=== PATIENT | female | born 1940 | race Caucasian/White ===

== ENCOUNTER 2016-05-18 09:15 | Emergency (ER) | payer MEDICAID ==
[~2016-05-18] VITALS: Wt 76.0 kg
[~2016-05-18 09:15] MED LIST: ALEN70TA30 PO; ATEN-51 PO; BENA40TA41 PO; BENZ-5 PO; CALC-62 PO; GLIPIZIDE PO; HYDR25TA6 PO; IBUP400T22 PO; LEVO500T10 PO; METF500T4 PO; OMEG-135 PO; SENOKOTS PO; UDROBDM PO
[2016-05-18] MEDS ORDERED: KETOROLAC 30 MG INJ IM STA (10:02)
--- NOTE | 2016-05-18 11:22 | RADRPT ---
PROCEDURE: XR Left Wrist. CLINICAL INDICATION: Pain. TECHNIQUE: AP, lateral, skateboard and oblique views of the left wrist were performed. COMPARISON: Left wrist 03/17/2009. FINDINGS: There are degenerative changes of the left first carpal metacarpal joints. These scaphoid bone is intact. The other visible bony elements appear intact are anatomically aligned. IMPRESSION: 1. Degenerative arthropathy involving the left first carpal metacarpal joint. 2. The scaphoid bone and other bony elements are intact with no acute fracture identified. RPTAT:AAJJ Physician Terra Date Time Electronically viewed and signed by Physician Terra on 05/18/2016 11:21 /
--- NOTE | 2016-05-18 11:23 | RADRPT ---
PROCEDURE: XR left thumb. CLINICAL INDICATION: Injury TECHNIQUE: 4 views are available for review. COMPARISON: No prior studies are available for comparison. FINDINGS: There is normal mineralization, architecture and alignment. No fracture or osseous lesion is identi fied. There is mild to moderate osteoarthrosis involving the 1st carpal-metacarpal joint. This is as sociated with joint space narrowing, subchondral sclerosis and osteophytosis. The soft tissues are u nremarkable IMPRESSION: Mild to moderate osteoarthrosis involving the 1st carpal-metacarpal joint. RPTAT: HGDB .Lexx Rodriguez MD, Date Time Electronically viewed and signed by .Lexx Rodriguez MD, on 05/18/2016 11:23 .B/
--- NOTE | 2016-05-18 11:39 | ERD ---
ER Documentation Chief Complaint Date/Time DATE: 05/18/16 TIME: 11:31 Chief Complaint LEFT HAND PAIN AFTER MECHANICAL FALL HPI This is a 76-year-old female who presents the emergency department today complaining of left thumb and wrist pain after washing some dishes the other day and slamming her thumb into the sink.. Denies any previous trauma. Denies any fevers or chills. States that she put aloe vera on it. ROS All systems reviewed and are negative except as per history of present illness. Medications Home Meds Active Scripts Acetaminophen* (Tylophen*) 500 Mg Capsule, 1 CAP PO Q6H Y for PAIN AND OR ELEVATED TEMP, #30 CAP Prov:JESSICA MUÑOZ PA-C 05/18/16 Tramadol HCl (Tramadol HCl) 50 Mg Tablet, 50 MG PO Q4 Y for PAIN, #20 TAB Prov:JESSICA MUÑOZ PA-C 05/18/16 Ibuprofen* (Motrin*) 400 Mg Tab, 400 MG PO Q6, #30 TAB 0 Refills Prov:ATIF HARTLEY PA-C 06/11/15 Benzonatate* (Benzonatate*) 100 Mg Capsule, 100 MG PO TID Y for COUGH, #6 CAP Prov:RAMEZ CASTANEDA MD 01/08/15 Guaifenesin-Dextromethorphan* (Robitussin* DM) 100MG/10MG/5ML Syrup, 5 ML PO Q6H Y for COUGH, #100 ML Prov:RAMEZ CASTANEDA MD 01/08/15 Levofloxacin* (Levofloxacin*) 500 Mg Tablet, 500 MG PO DAILY, #7 TAB Prov:RAMEZ CASTANEDA MD 01/08/15 Reported Medications Docusate Sod/Senna (Senokot-S) 1 Tab Tab, 1 TAB PO DAILY Y 03/07/11 Fish Oil* (Fish Oil*) 1,000 Mg Cap, 1000 MG PO DAILY 03/07/11 Alendronate Sodium* (Fosamax*) 70 Mg Tablet, 70 MG PO QFRIDAY 03/07/11 Atenolol* (Atenolol*) 25 Mg Tablet, 25 MG PO DAILY 03/07/11 Hydrochlorothiazide (Hydrochlorothiazide) 25 Mg Tablet, 25 MG PO DAILY 1/11/12 Benazepril Hcl* (Benazepril Hcl*) 40 Mg Tablet, 40 MG PO DAILY 03/07/11 Calcium Carbonate/Vitamin D3 (Calcium 500 + D Tablet) 1 Tab Tablet, 1 TAB PO TID 03/07/11 Glipizide , 1 TAB PO BID 05/17/10 Metformin* (Glucophage*) 500 Mg Tab, 500 MG PO BID 03/17/09 Allergies Allergies: Coded Allergies: No Known Allergies (Verified Allergy, Mild, 06/11/15) PMhx/Soc History of Surgery: No Anesthesia Reaction: No Hx Neurological Disorder: No Hx Respiratory Disorders: Yes (pneumonia and nodule on lung) Hx Cardiac Disorders: Yes (HTN) Hx Psychiatric Problems: No Hx Miscellaneous Medical Probl: Yes (ARTHRITIS) Hx Alcohol Use: No Hx Substance Use: No Hx Tobacco Use: No Smoking Status: Never smoker Physical Exam Vitals Vital Signs Date Time Temp Pulse Resp B/P Pulse Ox O2 Delivery O2 Flow Rate FiO2 05/18/16 09:18 98.0 101 18 151/66 99 Physical Exam Const: NAD Head: Atraumatic Eyes: Normal Conjunctiva ENT: Normal External Ears, Nose and Mouth. Neck: Full range of motion..~ No meningismus. Resp: Clear to auscultation bilaterally Cardio: Regular rate and rhythm, no murmurs Skin: No petechiae or rashes MSK: thumb and wrist with no obvious deformity. Full active range of motion at wrist. Mild tenderness to palpation over scaphoid. Thenar thenar swelling. Tenderness to palpation. Unable to assess range of motion secondary to pain. Neur: Awake and alert Psych: Normal Mood and Affect Results 24 hrs Current Medications Medications (Trade) Dose Ordered Sig/Alex Route PRN Reason Start Time Stop Time Status Last Admin Dose Admin Ketorolac Tromethamine (Toradol) 30 mg ONCE STAT IM 05/18/16 10:02 05/18/16 10:04 DC 05/18/16 10:09 DIAGNOSTIC IMAGING REPORT Patient: SIOBHAN BARBOSA : 1940 Age: 76 Sex: F MR #: [id number] DOS: 05/18/16 0000 Ordering MD: JESSICA MUÑOZ PA-C Location: [facility] Room/Bed: PROCEDURE: XR left thumb. CLINICAL INDICATION: Injury TECHNIQUE: 4 views are available for review. COMPARISON: No prior studies are available for comparison. FINDINGS: There is normal mineralization, architecture and alignment. No fracture or osseous lesion is identified. There is mild to moderate osteoarthrosis involving the 1st carpal-metacarpal joint. This is associated with joint space narrowing, subchondral sclerosis and osteophytosis. The soft tissues are unremarkable IMPRESSION: Mild to moderate osteoarthrosis involving the 1st carpal-metacarpal joint. RPTAT: HGDB .Lexx Rodriguez MD, Date Time Electronically viewed and signed by .Lexx Rodriguez MD, MD on 05/18/2016 11:23 .B/ CC: JESSICA MUÑOZ PA-C DIAGNOSTIC IMAGING REPORT Patient: SIOBHAN BARBOSA : 1940 Age: 76 Sex: F MR #: [id number] DOS: 05/18/16 0000 Ordering MD: JESSICA MUÑOZ PA-C Location: [facility] Room/Bed: PROCEDURE: XR Left Wrist. CLINICAL INDICATION: Pain. TECHNIQUE: AP, lateral, skateboard and oblique views of the left wrist were performed. COMPARISON: Left wrist 03/17/2009. FINDINGS: There are degenerative changes of the left first carpal metacarpal joints. These scaphoid bone is intact. The other visible bony elements appear intact are anatomically aligned. IMPRESSION: 1. Degenerative arthropathy involving the left first carpal metacarpal joint. 2. The scaphoid bone and other bony elements are intact with no acute fracture identified. RPTAT:AAJJ Physician Terra Date Time Electronically viewed and signed by Physician Terra on 05/18/2016 11:21 JM/ CC: JESSICA MUÑOZ PA-C Procedures/MDM This a 76-year-old female who presents to the emergency department today complaining of left thumb and wrist pain after sustaining an injury in which she slammed her thumb into the sink while cleaning dishes. Given that there was trauma and there was a significant amount of swelling over the thenar eminence I did obtain images. Per the radiology report images of the left thumb show mild to moderate osteoarthrosis involving the first carpometacarpal joint. There is joint space narrowing, subchondral sclerosis and osteophytosis. Soft tissues are unremarkable. Scaphoid bone on her wrist is intact with no acute fracture identified. Patient is afebrile and otherwise well-appearing. Low suspicion for septic joint or gout. Patient symptoms at this time is consistent with contusion versus strain versus sprain versus osteoarthritis Patient's daughter was requesting an injection here in the emergency department. Patient was given Toradol. I will give her a prescription for tramadol and Tylenol for home. She was instructed to apply ice she was placed in a splint for comfort. She is distally neurovascularly intact pre-and post splint application. At this time the patient is stable for discharge and outpatient management. Patient should follow up with their PCP in the next 1-2 days for possible referral to orthopedic. They may return to the emergency department sooner for any persistent or worsening of symptoms. Patient and daughter understood and agreed with the plan. Departure Diagnosis: Primary Impression: Thumb injury Encounter type: initial encounter Laterality: left Qualified Code: S69.92XA - Thumb injury, left, initial encounter Condition: Fair JESSICA MUÑOZ PA-C May 18, 2016 11:39
[2016-05-18] MEDS ORDERED: ACET500C5 PO (11:45)
[2016-05-18] MEDS ORDERED: TRAM50TA2 PO (11:45)
[2016-05-18 11:57] VITALS: BP 142/69; PULSE 80; RESP 18
== END 2016-05-18 12:27 | disposition home or self-care (01) ==
LOC: FTE 09:15
DX: S69.92XA Unspecified injury of left wrist, hand and finger(s), initial encounter (principal); I10 Essential (primary) hypertension; W18.39XA Other fall on same level, initial encounter; Y92.9 Unspecified place or not applicable; Z79.84 Long term (current) use of oral hypoglycemic drugs
CPT/HCPCS: 29125; 73110; 73140; 96372; J1885; Z7502

== ENCOUNTER 2016-05-24 19:14 | Emergency (ER) | payer MEDICAID ==
[~2016-05-24] VITALS: Ht 157.5 cm; Wt 68.5 kg
[~2016-05-24 19:14] MED LIST changes: +ACET500C5 PO; +TRAM50TA2 PO
[2016-05-24 19:45] VITALS: Ht 157.5 cm; Wt 68.5 kg
--- NOTE | 2016-05-24 22:08 | ERA ---
ER Documentation Chief Complaint Date/Time DATE: 05/24/16 TIME: 22:07 Chief Complaint dizziness HPI The patient is a 76-year-old female, presenting to the ER because of dizziness, she felt as if the room is spinning. She feels better if she closes her eye, worse if she move her head. She vomited mostly mucus. She has similar symptoms previously, denies syncope, near syncope, neck pain, chest pain, dyspnea, abdominal pain, dysuria, diarrhea. She does not smoke, drink Past medical history: Hypertension, osteoporosis, diabetes mellitus, dyslipidemia Past surgical history: None ROS All systems reviewed and are negative except as per history of present illness. Medications Home Meds Active Scripts Ondansetron (Ondansetron Odt) 4 Mg Tab.rapdis, 4 MG PO Q6H Y for NAUSEA AND/OR VOMITING, #10 TAB Prov:LEONARDO HUGHES MD 05/25/16 Meclizine Hcl* (Antivert*) 12.5 Mg Tab, 25 MG PO Q6H Y for DIZZINESS, #20 TAB Prov:LEONARDO HUGHES MD 05/25/16 Reported Medications Famotidine* (Famotidine*) Unknown Strength Tablet, 1 TAB PO DAILY, #30 TAB 05/24/16 Atorvastatin Calcium* (Atorvastatin Calcium*) Unknown Strength Tablet, 1 TAB PO QHS, #30 TAB 05/24/16 Glipizide* (Glipizide*) Unknown Strength Tablet, 1 TAB PO AC BREAKFAST DINNER, TAB 05/24/16 Fish Oil* (Fish Oil*) 1,000 Mg Cap, 1000 MG PO DAILY 03/07/11 Hydrochlorothiazide (Hydrochlorothiazide) 25 Mg Tablet, 25 MG PO DAILY 03/07/11 Benazepril Hcl* (Benazepril Hcl*) 40 Mg Tablet, 40 MG PO DAILY 03/07/11 Calcium Carbonate/Vitamin D3 (Calcium 500 + D Tablet) 1 Tab Tablet, 1 TAB PO TID 03/07/11 Discontinued Reported Medications Docusate Sod/Senna (Senokot-S) 1 Tab Tab, 1 TAB PO DAILY Y 03/07/11 Alendronate Sodium* (Fosamax*) 70 Mg Tablet, 70 MG PO QFRIDAY 03/07/11 Atenolol* (Atenolol*) 25 Mg Tablet, 25 MG PO DAILY 03/07/11 Glipizide , 1 TAB PO BID 05/17/10 Metformin* (Glucophage*) 500 Mg Tab, 500 MG PO BID 03/17/09 Discontinued Scripts Acetaminophen* (Tylophen*) 500 Mg Capsule, 1 CAP PO Q6H Y for PAIN AND OR ELEVATED TEMP, #30 CAP Prov:JESSICA MUÑOZ PA-C 05/18/16 Tramadol HCl (Tramadol HCl) 50 Mg Tablet, 50 MG PO Q4 Y for PAIN, #20 TAB Prov:JESSICA MUÑOZ PA-C 05/18/16 Ibuprofen* (Motrin*) 400 Mg Tab, 400 MG PO Q6, #30 TAB 0 Refills Prov:ATIF HARTLEY PA-C 06/11/15 Benzonatate* (Benzonatate*) 100 Mg Capsule, 100 MG PO TID Y for COUGH, #6 CAP Prov:RAMEZ CASTANEDA MD 01/08/15 Guaifenesin-Dextromethorphan* (Robitussin* DM) 100MG/10MG/5ML Syrup, 5 ML PO Q6H Y for COUGH, #100 ML Prov:RAMEZ CASTANEDA MD 01/08/15 Levofloxacin* (Levofloxacin*) 500 Mg Tablet, 500 MG PO DAILY, #7 TAB Prov:RAMEZ CASTANEDA MD 01/08/15 Allergies Allergies: Coded Allergies: No Known Allergies (Verified Allergy, Mild, 05/24/16) PMhx/Soc History of Surgery: No Anesthesia Reaction: No Hx Neurological Disorder: No Hx Respiratory Disorders: Yes (pneumonia and nodule on lung) Hx Cardiac Disorders: Yes (HTN) Hx Psychiatric Problems: No Hx Miscellaneous Medical Probl: Yes (ARTHRITIS) Hx Alcohol Use: No Hx Substance Use: No Hx Tobacco Use: No Physical Exam Vitals Vital Signs Date Time Temp Pulse Resp B/P Pulse Ox O2 Delivery O2 Flow Rate FiO2 05/25/16 00:00 67 17 159/60 99 Room Air 05/24/16 19:45 98.4 84 18 216/103 98 Physical Exam Const: No acute distress. Head: Atraumatic. Eyes: Normal Conjunctiva. ENT: Normal External Ears, Nose and Mouth. No nystagmus. Bilateral tympanic membranes are within normal limit Neck: Full range of motion. No meningismus. Resp: Clear to auscultation bilaterally. Cardio: Regular rate and rhythm, no murmurs. Abd: Soft, non distended, normal bowel sounds, non tender. Skin: No petechiae or rashes. Back: No midline or flank tenderness. Ext: No cyanosis, or edema. Neur: Awake and alert. No focal deficit Psych: Normal Mood and Affect. Result Diagram: 05/24/16 2240 05/24/16 2310 Results 24 hrs Laboratory Tests Test 05/24/16 20:08 05/24/16 22:39 05/24/16 22:40 05/24/16 23:10 Bedside Glucose 281mg/dL 291mg/dL White Blood Count 11.710^3/ul Red Blood Count 4.1610^6/ul Hemoglobin 12.7g/dl Hematocrit 36.1% Mean Corpuscular Volume 86.8fl Mean Corpuscular Hemoglobin 30.5pg Mean Corpuscular Hemoglobin Concent 35.2g/dl Red Cell Distribution Width 14.1% Platelet Count 59937^3/UL Mean Platelet Volume 9.7fl Neutrophils % 79.2% Lymphocytes % 15.6% Monocytes % 4.0% Eosinophils % 0.0% Basophils % 0.8% Nucleated Red Blood Cells % 0.0/100WBC Neutrophils # 9.310^3/ul Lymphocytes # 1.810^3/ul Monocytes # 0.510^3/ul Eosinophils # 0.010^3/ul Basophils # 0.110^3/ul Nucleated Red Blood Cells # 0.010^3/ul Prothrombin Time 12.7Sec Prothrombin Time Ratio 1.0 INR International Normalized Ratio 0.95 Activated Partial Thromboplast Time 27.5Sec Sodium Level 129mmol/L Potassium Level 4.5mmol/L Chloride Level 91mmol/L Carbon Dioxide Level 26mmol/L Anion Gap 17 Blood Urea Nitrogen 16mg/dl Creatinine 0.67mg/dl Glucose Level 292mg/dl Calcium Level 9.2mg/dl Current Medications Medications (Trade) Dose Ordered Sig/Alex Route PRN Reason Start Time Stop Time Status Last Admin Dose Admin Meclizine HCl (Antivert) 25 mg ONCE ONCE PO 05/24/16 22:30 05/24/16 22:31 DC 05/24/16 22:43 Ondansetron HCl 4 mg 4 mg ONCE STAT IV 05/24/16 22:21 05/24/16 22:22 DC 05/24/16 22:43 Sodium Chloride (NS) 500 ml @ 500 mls/hr Q1H ONCE IV 05/25/16 01:00 05/25/16 01:59 Procedures/MDM [place] [address] Radiology Main Line: [phone] DIAGNOSTIC IMAGING REPORT Patient: SIOBHAN BARBOSA : 1940 Age: 76 Sex: F MR #: [id number] DOS: 05/24/16 2220 Ordering MD: LEONARDO HUGHES MD Location: E/R Room/Bed: PROCEDURE: CT brain without contrast CLINICAL INDICATION: Headaches TECHNIQUE: A CT of the brain was performed utilizing axial sections from the skull base through the vertex without contrast. Sagittal and coronal images were also reformatted. The exam CTDIvol = 45.01 mGy and DLP = 720.23 mGy-cm. COMPARISON: None available FINDINGS: No acute intracranial hemorrhage is identified. There is no mass effect or midline shift. No extra-axial fluid collection is seen. Prominence of the ventricular system and sulci is consistent with generalized tissue loss that is appropriate for the patient's provided age of 76 years, low attenuation within the periventricular white matter is nonspecific but likely sequela of mild chronic small vessel ischemia. The density of the brain is within normal limits. Stoner-white differentiation is preserved. The osseous structures are unremarkable. Mucous retention cyst or polyp in the left maxillary antrum is present. The remaining paranasal sinuses and mastoid air cells are clear RPTAT:HJJR IMPRESSION: 1. Generalized age-appropriate cerebral tissue loss with mild periventricular white matter disease likely chronic small vessel ischemia but no evidence of acute intracranial abnormality or mass effect. 2. Mucous retention cyst or polyp in the left maxillary antrum. Physician Chavez Date Time Electronically viewed and signed by Physician Chavez on 05/25/2016 00:05 JR/ CC: LEONARDO HUGHES MD EKG: Read by emergency physician Rate/Rhythm: Normal Sinus Rhythm 75 beats/min QRS, ST, T-waves: No ST elevation, no T inversion, left anterior fascicular block Impression: Abnormal EKG MEDICAL MAKING DECISION: The patient is a 76-year-old female, presenting to the ER because of acute dizziness of unclear etiology, most likely benign positional vertigo, acute diabetic hyperglycemia, acute accelerated hypertension. She was treated with Antivert 25 mg p.o., Zofran 4 mg IV for dizziness, 500 mL normal saline for acute diabetic hyperglycemia with good response. Her blood pressure improved without intervention. The differential diagnoses considered include but are not limited to central causes such as cerebellar infarct, cerebellar hemorrhage, cerebellar tumor, acoustic neuroma, peripheral causes such as benign positional vertigo, labyrinthitis, medication, Meniere's disease. Departure Diagnosis: Primary Impression: Dizziness of unknown cause Additional Impressions: Diabetes mellitus with hyperglycemia Accelerated hypertension Condition: Good Comments She was discharged with Antivert, Zofran ODT I discussed the findings with the patient. I advised the patient to follow-up with the primary physician in about 1-2 days, sooner if needed and return if any concern. LEONARDO HUGHES MD May 24, 2016 22:08
[2016-05-24] MEDS ORDERED: ONDANSETRON 4 MG INJ IV STA (22:21)
[2016-05-24] MEDS ORDERED: MECLIZINE 12.5 MG TAB PO ONE (22:30)
[2016-05-24 22:49] LABS: ADD SCAN DIFF NO
[2016-05-24 22:51] LABS: BASOPHIL # 0.1 10^3/ul (0.0-0.1); BASOPHILS % 0.8 % (0.0-2.0); HEMATOCRIT 36.1 % (37.0-47.0); HEMOGLOBIN 12.7 g/dl (12.0-16.0); LYMPHOCYTES # 1.8 10^3/ul (0.8-2.9); LYMPHOCYTES % 15.6 % (15.0-51.0); MEAN CORPUSCULAR HEMOGLOBIN 30.5 pg (29.0-33.0); MEAN CORPUSCULAR HGB CONC 35.2 g/dl (32.0-37.0); MEAN CORPUSCULAR VOLUME 86.8 fl (82.0-101.0); MEAN PLATELET VOLUME 9.7 fl (7.4-10.4); MONOCYTE # 0.5 10^3/ul (0.3-0.9); NEUTROPHIL # 9.3 10^3/ul (1.6-7.5); NEUTROPHILS % 79.2 % (39.0-77.0); PLATELET COUNT 390 10^3/UL (140-415); RED BLOOD COUNT 4.16 10^6/ul (4.20-5.40); RED CELL DISTRIBUTION WIDTH 14.1 % (11.5-14.5); WHITE BLOOD COUNT 11.7 10^3/ul (4.8-10.8)
[2016-05-24] MEDS ORDERED: GLIP-95 PO (22:56)
[2016-05-24] MEDS ORDERED: ATOR20TA38 PO (22:56)
[2016-05-24] MEDS ORDERED: FAMO20TA18 PO (22:57)
[2016-05-24 23:01] LABS: INR 0.95; PROTIME 12.7 Sec (12.2-14.2)
[2016-05-24 23:02] LABS: PARTIAL THROMBOPLASTIN TIME 27.5 Sec (25.0-35.0)
[2016-05-24 23:43] LABS: POTASSIUM 4.5 mmol/L (3.5-5.1)
[2016-05-24 23:46] LABS: CALCIUM 9.2 mg/dl (8.4-10.2); CREATININE 0.67 mg/dl (0.44-1.00)
--- NOTE | 2016-05-25 00:05 | RADRPT ---
PROCEDURE: CT brain without contrast CLINICAL INDICATION: Headaches TECHNIQUE: A CT of the brain was performed utilizing axial sections from the skull base through th e vertex without contrast. Sagittal and coronal images were also reformatted. The exam CTDIvol = 45. 01 mGy and DLP = 720.23 mGy-cm. COMPARISON: None available FINDINGS: No acute intracranial hemorrhage is identified. There is no mass effect or midline shift. No extra -axial fluid collection is seen. Prominence of the ventricular system and sulci is consistent with generalized tissue loss that is appropriate for the patient's provided age of 76 years, low attenuat ion within the periventricular white matter is nonspecific but likely sequela of mild chronic small vessel ischemia. The density of the brain is within normal limits. Stoner-white differentiation is p reserved. The osseous structures are unremarkable. Mucous retention cyst or polyp in the left maxillary antru m is present. The remaining paranasal sinuses and mastoid air cells are clear RPTAT:HJJR IMPRESSION: 1. Generalized age-appropriate cerebral tissue loss with mild periventricular white matter disease likely chronic small vessel ischemia but no evidence of acute intracranial abnormality or mass effec t. 2. Mucous retention cyst or polyp in the left maxillary antrum. Physician Chavez Date Time Electronically viewed and signed by Physician Chavez on 05/25/2016 00:05 JR/
[2016-05-25] MEDS ORDERED: ONDA4TAB14 PO (00:50)
[2016-05-25] MEDS ORDERED: MECL12.574 PO (00:50)
[2016-05-25] MEDS ORDERED: SOD CHLORIDE 0.9% 500 ML IV ONE (01:00)
[2016-05-25 01:55] VITALS: BP 155/60; PULSE 70; RESP 16; TEMP 98.4
== END 2016-05-25 02:05 | disposition home or self-care (01) ==
LOC: E/R 19:14
DX: R42 Dizziness and giddiness (principal); E11.65 Type 2 diabetes mellitus with hyperglycemia; I10 Essential (primary) hypertension; R11.10 Vomiting, unspecified; Z79.84 Long term (current) use of oral hypoglycemic drugs
CPT/HCPCS: 70450; 80048; 82962; 85025; 85610; 85730; 93005; J2405; J7040; Z7610; 36415; 96361; 96374

== ENCOUNTER 2018-03-19 11:42 | Emergency (ER) | payer MEDICAID ==
[~2018-03-19] VITALS: Wt 66.4 kg
[~2018-03-19 11:42] MED LIST changes: -ACET500C5 PO; -ALEN70TA30 PO; -ATEN-51 PO; +ATOR20TA38 PO; -BENA40TA41 PO; +BENA40TA56 PO; -BENZ-5 PO; +FAMO20TA18 PO; +GLIP10TA14 PO; -GLIPIZIDE PO; -IBUP400T22 PO; -LEVO500T10 PO; +MECL12.574 PO; -METF500T4 PO; +ONDA4TAB14 PO; -SENOKOTS PO; -TRAM50TA2 PO; -UDROBDM PO
[2018-03-19 11:45] VITALS: BP 150/72; PULSE 84; RESP 18
--- NOTE | 2018-03-19 14:09 | ERD ---
ER Documentation Chief Complaint Chief Complaint ADELA FEET SWELLING X 2 DAYS HPI 78-year-old female with history of diabetes, presents the emergency department, complaining of right ankle pain and edema after sustaining a mechanical fall yesterday. The patient tripped at home causing a forced inversion of the right ankle. The patient is also complaining of strong urine smell but denies dysuria, no fever, no abdominal pain. ROS All systems reviewed and are negative except as per history of present illness. Medications Home Meds Active Scripts Ibuprofen* (Motrin*) 400 Mg Tab, 400 MG PO Q6H PRN for PAIN AND OR ELEVATED TEMP, #16 TAB Prov:CHRIS LOVE MD 03/19/18 Acetaminophen* (Tylenol*) 325 Mg Tablet, 2 TAB PO Q8 PRN for PAIN AND OR ELEVATED TEMP, #20 TAB Prov:CHRIS LOVE MD 03/19/18 Ondansetron (Ondansetron Odt) 4 Mg Tab.rapdis, 4 MG PO Q6H PRN for NAUSEA AND/OR VOMITING, #10 TAB Prov:LEONARDO HUGHES MD 05/25/16 Meclizine Hcl* (Antivert*) 12.5 Mg Tab, 25 MG PO Q6H PRN for DIZZINESS, #20 TAB Prov:LEONARDO HUGHES MD 05/25/16 Reported Medications Famotidine* (Famotidine*) Unknown Strength Tablet, 1 TAB PO DAILY, #30 TAB 05/24/16 Atorvastatin Calcium* (Atorvastatin Calcium*) Unknown Strength Tablet, 1 TAB PO QHS, #30 TAB 05/24/16 Glipizide* (Glipizide*) Unknown Strength Tablet, 1 TAB PO AC BREAKFAST DINNER, TAB 05/24/16 Fish Oil* (Fish Oil*) 1,000 Mg Cap, 1000 MG PO DAILY 03/07/11 Hydrochlorothiazide (Hydrochlorothiazide) 25 Mg Tablet, 25 MG PO DAILY 03/07/11 Benazepril Hcl* (Benazepril Hcl*) 40 Mg Tablet, 40 MG PO DAILY 03/07/11 Calcium Carbonate/Vitamin D3 (Calcium 500 + D Tablet) 1 Tab Tablet, 1 TAB PO TID 03/07/11 Allergies Allergies: Coded Allergies: No Known Allergies (Verified Allergy, Mild, 03/19/18) PMhx/Soc Medical and Surgical Hx: pt denies Surgical Hx History of Surgery: No Anesthesia Reaction: No Hx Neurological Disorder: No Hx Respiratory Disorders: Yes (pneumonia and nodule on lung) Hx Cardiac Disorders: Yes (HTN) Hx Psychiatric Problems: No Hx Miscellaneous Medical Probl: Yes (ARTHRITIS) Hx Alcohol Use: No Hx Substance Use: No Hx Tobacco Use: No Smoking Status: Never smoker Physical Exam Vitals Vital Signs Date Temp Pulse Resp B/P (MAP) Pulse Ox O2 O2 Flow FiO2 Time Delivery Rate 03/19/18 98.6 84 18 150/72 99 11:45 (98) Physical Exam Const: No acute distress Head: Atraumatic Eyes: Normal Conjunctiva ENT: Normal External Ears, Nose and Mouth. Neck: Full range of motion. No meningismus. Resp: Clear to auscultation bilaterally Cardio: Regular rate and rhythm, no murmurs Abd: Soft, non tender, non distended. Normal bowel sounds Skin: No petechiae or rashes Back: No midline or flank tenderness Ext: Right ankle: Significant lateral malleolar edema, tenderness to palpation, no gross deformity, decreased range of motion due to pain. Distal neurovascular exam intact Neur: Awake and alert Psych: Normal Mood and Affect Results 24 hrs Laboratory Tests Test 03/19/18 14:30 Bedside Urine pH (LAB) 5.5 Bedside Urine Protein (LAB) 1+ Bedside Urine Glucose (UA) Negative Bedside Urine Ketones (LAB) Negative Bedside Urine Blood Trace-intact Bedside Urine Nitrite (LAB) Negative Bedside Urine Leukocyte Esterase (L Trace Radiology Main Line: [phone] DIAGNOSTIC IMAGING REPORT Patient: SIOBHAN BARBOSA : 1940 Age: 78 Sex: F [id number] DOS: 03/19/18 1413 Ordering MD: CHRIS LOVE MD Location: [facility] Room/Bed: PROCEDURE: XR Right Ankle. CLINICAL INDICATION: Trauma due to a fall. Right ankle pain. TECHNIQUE: 3 views. Frontal, lateral, and oblique. COMPARISON: None. FINDINGS: There is no fracture or dislocation. There is extensive lateral soft tissue swelling. Articular surfaces are intact. There are calcaneal spurs. There is no lytic or blastic lesion. There is no radiopaque foreign body. IMPRESSION: 1. Lateral soft tissue swelling. 2. Calcaneal spurs. 3. Otherwise unremarkable images of the right ankle. RPTAT: QQ .Andrew Nugent MD, MD Date Time Electronically viewed and signed by .Andrew Nugent MD, on 03/19/2018 15:06 .R/ CC: CHRIS LOVE MD [id number] Procedures/MDM Acute right ankle pain: no red flags. Differential diagnosis include but not limited to: Ankle sprain/strain, ligament injury, arthritis; low suspicion for fracture, dislocation, septic arthritis. Neurovascular exam grossly intact. no clinical findings suggestive of acute infectious process, no deformity, no rashes. Pertinent Data: X-rays: No fracture or dislocation Physical examination and clinical presentation consistent most likely with ankle sprain. During the ED course the patient received treatment with short leg posterior splint and crutches presenting overall improvement of the symptoms. Results and clinical impression discussed with patient who agrees with management. The patient is stable to be treated outpatient and will be discharged home with recommendations for ice, rest and partial immobilization. NSAIDs 3 times daily for 5 days and close monitoring. The patient was instructed to follow up with the primary care provider in the next 48h. If symptoms persist, worsen or new symptoms develop, then patient should return to the ED immediately. Instructions explained and given to patient with acknowledgment and demonstrated understanding. Disclaimer: Inadvertent spelling and grammatical errors are likely due to EHR/dictation software use and do not reflect on the overall quality of patient care. Also, please note that the electronic time recorded on this note does not necessarily reflect the actual time of the patient encounter. Departure Diagnosis: Primary Impression: Right ankle sprain Condition: Stable Additional Instructions: Muchas radha por [facility] para rios servicio. Esperamos que en rios visita a la fiorella de emergencia rios problema medico haya sido solucionado y que se sienta mucho mejor. Para estar seguros que rios mejoria sigue en proceso, le pedimos el favor de hacer hodan khari de seguimiento medico con rios doctor primario en los proximos 2-4 toth. Lleve con usted estos documentos y las medicinas recetadas. Si taran sintomas empeoran, NO SE ESPERE, por favor regrese a fiorella de emergencia INMEDIATAMENTE. En reggie que usted no tenga un mdico de atencin primaria: Llame al mdico o clnica comunitaria de referencia que aparece abajo leonardo las horas de consultorio para hacer hodan khari para que le vean. CLINICAS: [place] [id number] [phone] [facility] [phone] [facility] [phone] [place] [phone] [place] [id number] [phone] [facility]. [phone] CHRIS HERRERA MD Mar 19, 2018 14:09
[2018-03-19] MEDS ORDERED: ACET325T33 PO (14:52)
[2018-03-19] MEDS ORDERED: IBUP-1561 PO (14:52)
== END 2018-03-19 15:16 | disposition home or self-care (01) ==
LOC: FTE 11:42
DX: S93.401A Sprain of unspecified ligament of right ankle, initial encounter (principal); I10 Essential (primary) hypertension; E11.9 Type 2 diabetes mellitus without complications; W01.0XXA Fall on same level from slipping, tripping and stumbling without subsequent striking against object, initial encounter; Y92.009 Unspecified place in unspecified non-institutional (private) residence as the place of occurrence of the external cause; Z79.84 Long term (current) use of oral hypoglycemic drugs
CPT/HCPCS: 73610; 81003; Z7502

== ENCOUNTER 2018-07-21 08:33 | Emergency (ER) | payer MEDICAID ==
[~2018-07-21] VITALS: Ht 162.6 cm; Wt 66.4 kg
[~2018-07-21 08:33] MED LIST changes: +ACET325T33 PO; +IBUP-1561 PO
[2018-07-21 08:51] VITALS: BP 151/66; PULSE 69; RESP 18; Ht 162.6 cm; Wt 66.4 kg
[2018-07-21] MEDS ORDERED: CEPH-443 PO (10:31)
--- NOTE | 2018-07-21 12:06 | ERD ---
ER Documentation Chief Complaint Chief Complaint engrown nail left big toe x3 days HPI 78-year-old female presenting with pain to left great toenail x3 days. Patient stubbed her toe 3 days ago and sustained pain to the lateral aspect of the left great toenail. There is been some mild erythema. Patient has not taken medications. History of diabetes. NKDA. Social history denies. Up-to-date on vaccinations. Surgical history denies ROS All systems reviewed and are negative except as per history of present illness. Medications Home Meds Active Scripts Cephalexin* (Keflex*) 500 Mg Capsule, 500 MG PO QID for 7 Days, CAP Prov:SERGIO JULIEN PA-C 07/21/18 Ibuprofen* (Motrin*) 400 Mg Tab, 400 MG PO Q6H PRN for PAIN AND OR ELEVATED TEMP, #16 TAB Prov:CHRIS LOVE MD 03/19/18 Acetaminophen* (Tylenol*) 325 Mg Tablet, 2 TAB PO Q8 PRN for PAIN AND OR ELEVATED TEMP, #20 TAB Prov:CHRIS LOVE MD 03/19/18 Ondansetron (Ondansetron Odt) 4 Mg Tab.rapdis, 4 MG PO Q6H PRN for NAUSEA AND/OR VOMITING, #10 TAB Prov:LEONARDO HUGHES MD 05/25/16 Meclizine Hcl* (Antivert*) 12.5 Mg Tab, 25 MG PO Q6H PRN for DIZZINESS, #20 TAB Prov:LEONARDO HUGHES MD 05/25/16 Reported Medications Famotidine* (Famotidine*) Unknown Strength Tablet, 1 TAB PO DAILY, #30 TAB 05/24/16 Atorvastatin Calcium* (Atorvastatin Calcium*) Unknown Strength Tablet, 1 TAB PO QHS, #30 TAB 05/24/16 Glipizide* (Glipizide*) Unknown Strength Tablet, 1 TAB PO AC BREAKFAST DINNER, TAB 05/24/16 Fish Oil* (Fish Oil*) 1,000 Mg Cap, 1000 MG PO DAILY 03/07/11 Hydrochlorothiazide (Hydrochlorothiazide) 25 Mg Tablet, 25 MG PO DAILY 03/07/11 Benazepril Hcl* (Benazepril Hcl*) 40 Mg Tablet, 40 MG PO DAILY 1/11/12 Calcium Carbonate/Vitamin D3 (Calcium 500 + D Tablet) 1 Tab Tablet, 1 TAB PO TID 03/07/11 Allergies Allergies: Coded Allergies: No Known Allergies (Verified Allergy, Mild, 03/19/18) PMhx/Soc History of Surgery: No Anesthesia Reaction: No Hx Neurological Disorder: No Hx Respiratory Disorders: Yes (pneumonia and nodule on lung) Hx Cardiac Disorders: Yes (HTN, DMii) Hx Psychiatric Problems: No Hx Miscellaneous Medical Probl: Yes (ARTHRITIS) Hx Alcohol Use: No Hx Substance Use: No Hx Tobacco Use: No FmHx Family History: No diabetes, No coronary disease, No other Physical Exam Vitals Vital Signs Date Temp Pulse Resp B/P (MAP) Pulse Ox O2 O2 Flow FiO2 Time Delivery Rate 07/21/18 97.7 69 18 151/66 97 08:51 (94) Physical Exam GENERAL: The patient is well-appearing, well-nourished, in no acute distress CHEST: Clear to auscultation bilaterally. There are no rales, wheezes or rhonchi. HEART: Regular rate and rhythm. No murmurs, clicks, rubs or gallops. EXTREMITIES: Equal pulses bilaterally. There is no peripheral clubbing, cyanosis or edema. No focal swelling or erythema. Full range of motion. Grossly neurovascularly intact. NEUROLOGIC: Alert and oriented. Cranial nerves II through XII intact. Motor strength in all 4 extremities with 5 out of 5 strength. Sensation grossly intact. Normal speech and gait. SKIN: Questional erythema noted to the distal tip of the toe with mild pain on palpation. Nail does not appear to be causing this irritation. Procedures/MDM DIAGNOSTIC IMAGING REPORT Patient: SIOBHAN BARBOSA : 1940 Age: 78 Sex: F MR #: [id number] DOS: 07/21/18 0957 Ordering MD: ALIE JULIEN PA-C Location: FTE Room/Bed: PROCEDURE: XR Left First Toe. CLINICAL INDICATION: Trauma. Left first toe pain. TECHNIQUE: Three views of the left first toe are available for review COMPARISON: No prior studies are available for comparison. FINDINGS: There is no fracture or dislocation. The soft tissues are normal. Articular surfaces are intact. There is no lytic or blastic lesion. There is no radiopaque foreign body. IMPRESSION: 1. Unremarkable images of the left first toe. MDM:-year-old female presenting with contusion of the toe. Patient's exam is non-concerning for ingrown toenail and I did not feel it was indicated to remove the lateral portion of the toe. I have low suspicion for bony injury secondary to injury. I have low suspicion for deep infection however patient may have a superficial cellulitic change and will be treated with antibiotic pills. Patient was treated aggressively given she is diabetic and recommended to have close follow-up in the next 2 to 3 days. All questions answered at discharge Departure Diagnosis: Primary Impression: Skin infection Condition: Stable Patient Instructions: Contusion, Foot Referrals: [facility] YOU HAVE RECEIVED A MEDICAL SCREENING EXAM AND THE RESULTS INDICATE THAT YOU DO NOT HAVE A CONDITION THAT REQUIRES URGENT TREATMENT IN THE EMERGENCY DEPARTMENT. FURTHER EVALUATION AND TREATMENT OF YOUR CONDITION CAN WAIT UNTIL YOU ARE SEEN IN YOUR DOCTORS OFFICE WITHIN THE NEXT 1-2 DAYS. IT IS YOUR RESPONSIBILITY TO MAKE AN APPOINTMENT FOR FOLOW-UP CARE. IF YOU HAVE A PRIMARY DOCTOR --you should call your primary doctor and schedule an appointment IF YOU DO NOT HAVE A PRIMARY DOCTOR YOU CAN CALL OUR PHYSICIAN REFERRAL HOTLINE AT IF YOU CAN NOT AFFORD TO SEE A PHYSICIAN YOU CAN CHOSE FROM THE FOLLOWING [facility] [address] [facility]. [facility] [address] [facility] [facility] [address] [facility] [facility] [address] [facility]. [facility] [address] [facility]. [facility]. [address] Additional Instructions: FOLLOW UP WITH YOUR PRIMARY CARE PHYSICIAN TOMORROW.Return to this facility if you are not improving as expected. SERGIO JULIEN PA-C July 21, 2018 12:06
== END 2018-07-21 10:45 | disposition home or self-care (01) ==
LOC: FTE 08:33
DX: S90.112A Contusion of left great toe without damage to nail, initial encounter (principal); L08.9 Local infection of the skin and subcutaneous tissue, unspecified; E11.9 Type 2 diabetes mellitus without complications; I10 Essential (primary) hypertension; X58.XXXA Exposure to other specified factors, initial encounter; Y92.9 Unspecified place or not applicable; Z79.84 Long term (current) use of oral hypoglycemic drugs
CPT/HCPCS: 73660; Z7502

== ENCOUNTER 2018-10-29 22:47 | Emergency (ER) | payer MEDICAID ==
[~2018-10-29] VITALS: Ht 152.4 cm; Wt 66.8 kg
[~2018-10-29 22:47] MED LIST changes: +ATOR-2 PO; +CEPH-443 PO; +GLIP5TAB13 PO; +MECL-77 PO; +METF100010 PO; +METO-335 PO; +METO25TA4 PO; +PIOG15TA67 PO
[2018-10-29 23:14] VITALS: Ht 152.4 cm; Wt 66.8 kg
[2018-10-29] MEDS ORDERED: SODIUM CHLORIDE 0.9% 1L BAG IV* STA (23:59)
[2018-10-29] MEDS ORDERED: ACETAMINOPHEN 325 MG TAB PO STA (23:59)
[2018-10-30 03:29] VITALS: BP 132/70; PULSE 70; RESP 14
[2018-10-30] MEDS ORDERED: CEFTRIAXONE 1 GM/50 ML (PMX) 50 ML IVPB ONE (03:30)
== END 2018-10-30 03:30 | disposition home or self-care (01) ==
LOC: E/R 22:47
DX: N30.00 Acute cystitis without hematuria (principal); I10 Essential (primary) hypertension; E11.9 Type 2 diabetes mellitus without complications; R06.02 Shortness of breath; Z79.84 Long term (current) use of oral hypoglycemic drugs
CPT/HCPCS: 36415; 71045; 80053; 81001; 83605; 84484; 85025; 85610; 85730; 87040; 87086; 93005; 96374; J0696; J7030; Z7502; Z7610

== ENCOUNTER 2018-11-03 16:58 | Inpatient (IN) | payer MEDICAID ==
[~2018-11-03] VITALS: Ht 152.4 cm; Wt 65.5 kg
[~2018-11-03 16:58] MED LIST changes: +AMLO-147 PO; +DICL100G33 TP
[2018-11-03] MEDS ORDERED: PIPER-TAZO 3.375 GM IV (PMX) 100 ML IVPB STA (20:54)
[2018-11-03] MEDS ORDERED: SODIUM CHLORIDE 0.9% 1L BAG IV* STA (21:16)
[2018-11-03] MEDS ORDERED: ACETAMINOPHEN 325 MG TAB PO PRN (22:00)
[2018-11-03] MEDS ORDERED: ONDANSETRON 4 MG INJ IV PRN (22:00)
[2018-11-04] MEDS ORDERED: NACL 0.9% 3 ML SYG IV SCH (03:30)
[2018-11-04] MEDS ORDERED: ALBUTEROL/IPRATROPIUM (NEB) 3 ML AMP HHN PRN (03:30)
[2018-11-04] MEDS ORDERED: MECLIZINE 25 MG TAB PO PRN (03:30)
[2018-11-04] MEDS ORDERED: GLUCOSE GEL 15 GRAM TUBE PO PRN ×4 (04:00→11:00)
[2018-11-04] MEDS ORDERED: DEXTROSE 50% 50 ML SYRINGE IV PRN ×4 (04:00→11:00)
[2018-11-04] MEDS ORDERED: GLUCAGON 1 MG INJ IM PRN ×2 (04:00→11:00)
[2018-11-04] MEDS ORDERED: GLUCOSE GEL 15 GRAM TUBE BUCCAL PRN ×2 (04:00→11:00)
[2018-11-04] MEDS: SOD CHLORIDE 0.9% 1,000 ML IV SCH ×2 (04:12→18:44)
[2018-11-04] MEDS ORDERED: ACCU-CHEK XX SCH (07:00)
[2018-11-04] MEDS: ACCU-CHEK XX SCH ×5 (08:00→21:32)
[2018-11-04] MEDS ORDERED: metFORMIN 500 MG TAB PO SCH (08:00)
[2018-11-04] MEDS: ACETAMINOPHEN 325 MG TAB PO PRN (08:55)
[2018-11-04] MEDS: METOPROLOL 25 MG TAB PO SCH (08:56)
[2018-11-04] MEDS ORDERED: PIOGLITAZONE 15 MG TAB PO SCH (09:00)
[2018-11-04] MEDS: MEROPENEM 500MG/50 ML (PMX) 50 ML IVPB SCH ×2 (09:03→21:52)
[2018-11-04] MEDS: HYDROCHLOROTHIAZIDE 25 MG TAB PO SCH (09:04)
[2018-11-04] MEDS: INSULIN ASPART [NOVOLOG] 3 ML PEN SC SCH ×3 (12:00→21:00)
[2018-11-04] MEDS: DICLOFENAC SODIUM 1% GEL 100 GM TUBE TP SCH ×3 (13:23→21:53)
[2018-11-04 16:30] VITALS: Ht 152.4 cm; Wt 65.5 kg
[2018-11-04 16:57] VITALS: BP 161/70; PULSE 76; RESP 18
[2018-11-04 20:12] VITALS: BP 188/78; PULSE 71; RESP 18
[2018-11-04] MEDS ORDERED: hydrALAzine 20 MG INJ IV ONE (20:30)
[2018-11-04] MEDS: ATORVASTATIN 80 MG TAB PO SCH (20:47)
[2018-11-04 20:48] VITALS: BP 169/71; PULSE 75
[2018-11-04 21:31] VITALS: BP 148/66; PULSE 84
[2018-11-04] MEDS: HYDROCODONE/APAP (5/325) TAB PO PRN (21:52)
[2018-11-05 01:59] VITALS: BP 127/60; PULSE 94; RESP 16
[2018-11-05] MEDS: ACCU-CHEK XX SCH ×4 (07:00→21:00)
[2018-11-05 07:40] VITALS: BP 163/67; PULSE 76; RESP 17
[2018-11-05] MEDS: INSULIN ASPART [NOVOLOG] 3 ML PEN SC SCH ×4 (08:00→20:44)
[2018-11-05] MEDS: SOD CHLORIDE 0.9% 1,000 ML IV SCH ×2 (09:19→22:15)
[2018-11-05] MEDS: MEROPENEM 500MG/50 ML (PMX) 50 ML IVPB SCH ×2 (09:21→20:37)
[2018-11-05] MEDS: DICLOFENAC SODIUM 1% GEL 100 GM TUBE TP SCH ×4 (09:22→20:39)
[2018-11-05] MEDS: HYDROCHLOROTHIAZIDE 25 MG TAB PO SCH (09:23)
[2018-11-05] MEDS: METOPROLOL 25 MG TAB PO SCH (09:24)
[2018-11-05] MEDS: HEPARIN 5,000 UNIT/1 ML VIAL SC SCH ×2 (09:30→20:44)
[2018-11-05] MEDS ORDERED: hydrALAzine 20 MG INJ IV PRN (09:30)
[2018-11-05] MEDS ORDERED: MAGNESIUM OXIDE 400 MG TAB PO ONE (09:30)
[2018-11-05] MEDS: AMLODIPINE 5 MG TAB PO SCH (10:00)
[2018-11-05 15:28] VITALS: BP 135/62; PULSE 77; RESP 16
[2018-11-05] MEDS: ACETAMINOPHEN 325 MG TAB PO PRN (15:54)
[2018-11-05 19:47] VITALS: BP 152/67; PULSE 86; RESP 18
[2018-11-05] MEDS: ATORVASTATIN 80 MG TAB PO SCH (20:37)
[2018-11-06] MEDS: SOD CHLORIDE 0.9% 1,000 ML IV SCH (01:42)
[2018-11-06] MEDS: ACCU-CHEK XX SCH ×5 (02:00→20:54)
[2018-11-06 02:18] VITALS: BP 169/71; PULSE 90; RESP 20
[2018-11-06 03:36] VITALS: BP 150/67; PULSE 92
[2018-11-06 07:28] VITALS: BP 146/72; PULSE 82; RESP 18
[2018-11-06] MEDS: INSULIN ASPART [NOVOLOG] 3 ML PEN SC SCH ×4 (07:47→22:16)
[2018-11-06] MEDS: ACETAMINOPHEN 325 MG TAB PO PRN (07:48)
[2018-11-06] MEDS: MEROPENEM 500MG/50 ML (PMX) 50 ML IVPB SCH ×2 (08:42→20:45)
[2018-11-06] MEDS: HYDROCHLOROTHIAZIDE 25 MG TAB PO SCH (08:42)
[2018-11-06] MEDS: AMLODIPINE 5 MG TAB PO SCH (08:42)
[2018-11-06] MEDS: DICLOFENAC SODIUM 1% GEL 100 GM TUBE TP SCH ×4 (08:43→20:53)
[2018-11-06] MEDS: METOPROLOL 25 MG TAB PO SCH (08:43)
[2018-11-06] MEDS: HEPARIN 5,000 UNIT/1 ML VIAL SC SCH ×2 (08:46→20:51)
[2018-11-06] MEDS ORDERED: MAGNESIUM OXIDE 400 MG TAB PO ONE (14:00)
[2018-11-06 14:16] VITALS: BP 123/56; PULSE 70; RESP 18
[2018-11-06 19:44] VITALS: BP 125/60; PULSE 86; RESP 19
[2018-11-06] MEDS: ATORVASTATIN 80 MG TAB PO SCH (20:45)
[2018-11-06] MEDS ORDERED: INSULIN GLARGINE [LANTus] (100 UNITS/ML) SYG SC SCH (22:30)
[2018-11-07 01:31] VITALS: BP 143/67; PULSE 83; RESP 18
[2018-11-07] MEDS: ACCU-CHEK XX SCH ×5 (02:51→20:48)
[2018-11-07 07:22] VITALS: BP 150/68; PULSE 81
[2018-11-07] MEDS: INSULIN ASPART [NOVOLOG] 3 ML PEN SC SCH ×4 (08:00→20:48)
[2018-11-07] MEDS: METOPROLOL 25 MG TAB PO SCH (08:22)
[2018-11-07] MEDS: HYDROCHLOROTHIAZIDE 25 MG TAB PO SCH (08:22)
[2018-11-07] MEDS: AMLODIPINE 10 MG TAB PO SCH (08:22)
[2018-11-07] MEDS: HEPARIN 5,000 UNIT/1 ML VIAL SC SCH ×2 (08:29→20:53)
[2018-11-07] MEDS: DICLOFENAC SODIUM 1% GEL 100 GM TUBE TP SCH ×4 (08:29→20:46)
[2018-11-07] MEDS: MEROPENEM 500MG/50 ML (PMX) 50 ML IVPB SCH ×2 (08:33→20:54)
[2018-11-07 13:58] VITALS: BP 153/67; PULSE 75; RESP 18
[2018-11-07] MEDS: INSULIN GLARGINE [LANTus] (100 UNITS/ML) SYG SC SCH ×2 (20:00→21:11)
[2018-11-07 20:37] VITALS: BP 163/69; PULSE 75; RESP 18
[2018-11-07] MEDS: ATORVASTATIN 80 MG TAB PO SCH (20:43)
[2018-11-07 21:30] VITALS: BP 148/62; PULSE 71; RESP 18
[2018-11-08 02:20] VITALS: BP 151/70; PULSE 77; RESP 16
[2018-11-08] MEDS: ACCU-CHEK XX SCH ×5 (02:32→20:52)
[2018-11-08] MEDS: HYDROCODONE/APAP (5/325) TAB PO PRN ×2 (04:52→17:42)
[2018-11-08 08:13] VITALS: BP 114/56; PULSE 71; RESP 18
[2018-11-08] MEDS ORDERED: LIDOCAINE 1% (MPF) 30 ML INJ INJ ONE (08:30)
[2018-11-08] MEDS: HEPARIN 5,000 UNIT/1 ML VIAL SC SCH ×2 (08:51→20:46)
[2018-11-08] MEDS: INSULIN ASPART [NOVOLOG] 3 ML PEN SC SCH ×4 (08:51→20:46)
[2018-11-08] MEDS: METOPROLOL 25 MG TAB PO SCH (08:52)
[2018-11-08] MEDS: AMLODIPINE 10 MG TAB PO SCH (08:52)
[2018-11-08] MEDS: HYDROCHLOROTHIAZIDE 25 MG TAB PO SCH (08:52)
[2018-11-08] MEDS: DICLOFENAC SODIUM 1% GEL 100 GM TUBE TP SCH ×4 (08:53→20:51)
[2018-11-08] MEDS: MEROPENEM 500MG/50 ML (PMX) 50 ML IVPB SCH ×2 (08:53→20:42)
[2018-11-08] MEDS ORDERED: MAGNESIUM SULFATE 2 GM/50 ML 50 ML IVPB ONE (10:30)
[2018-11-08] MEDS ORDERED: SOD CHLORIDE 0.45% 1,000 ML IV SCH (11:00)
[2018-11-08] MEDS ORDERED: LACTATED RINGER'S 1,000 ML IV SCH (11:22)
[2018-11-08] MEDS: ONDANSETRON 4 MG INJ IV PRN ×2 (11:30→20:42)
[2018-11-08] MEDS ORDERED: NACL 0.9% 3 ML SYG IV SCH (11:30)
[2018-11-08] MEDS ORDERED: HYDROmorphONE 1 MG/ML SYG IV PRN (11:30)
[2018-11-08] MEDS ORDERED: oxyCODONE 5 MG TAB PO PRN ×2 (11:30)
[2018-11-08] MEDS ORDERED: NALOXONE (0.4 MG/ML) INJ IV PRN (11:30)
[2018-11-08] MEDS ORDERED: BISACODYL 10 MG SUPP PR PRN (11:30)
[2018-11-08] MEDS ORDERED: MAGNESIUM HYDROXIDE 30ML CUP PO PRN (11:30)
[2018-11-08] MEDS ORDERED: BETHANECHOL 25 MG TAB PO PRN (11:30)
[2018-11-08] MEDS ORDERED: NA PHOSPHATE/BIPHOS 133 ML ENEMA PR PRN (11:30)
[2018-11-08] MEDS ORDERED: DOCUSATE SODIUM 100 MG CAP PO ONE (11:30)
[2018-11-08] MEDS ORDERED: SENNA/DOCUSATE NA (8.6MG/50MG) TAB PO PRN (11:30)
[2018-11-08] MEDS ORDERED: INSULIN ASPART [NOVOLOG] 3 ML PEN SC SCH (13:00)
[2018-11-08] MEDS ORDERED: ACETAMINOPHEN 500 MG TAB PO SCH (14:00)
[2018-11-08 16:37] VITALS: BP 118/55; PULSE 75; RESP 20
[2018-11-08 20:34] VITALS: BP 142/63; PULSE 74; RESP 18
[2018-11-08] MEDS: ATORVASTATIN 80 MG TAB PO SCH (20:42)
[2018-11-08] MEDS: INSULIN GLARGINE [LANTus] (100 UNITS/ML) SYG SC SCH (20:45)
[2018-11-08] MEDS: ACETAMINOPHEN 325 MG TAB PO PRN (22:58)
[2018-11-09 01:59] VITALS: BP 126/59; PULSE 73; RESP 17
[2018-11-09] MEDS: ACCU-CHEK XX SCH ×5 (02:00→20:05)
[2018-11-09] MEDS ORDERED: PANTOPRAZOLE (EC) 40 MG TAB PO SCH (06:00)
[2018-11-09 07:52] VITALS: BP 150/67; PULSE 70; RESP 20
[2018-11-09] MEDS: INSULIN ASPART [NOVOLOG] 3 ML PEN SC SCH ×7 (08:00→20:05)
[2018-11-09] MEDS: HEPARIN 5,000 UNIT/1 ML VIAL SC SCH ×3 (09:00→20:04)
[2018-11-09] MEDS: AMLODIPINE 10 MG TAB PO SCH ×2 (09:00→13:04)
[2018-11-09] MEDS: HYDROCHLOROTHIAZIDE 25 MG TAB PO SCH ×2 (09:00→13:04)
[2018-11-09] MEDS ORDERED: DOCUSATE SODIUM 100 MG CAP PO SCH (09:00)
[2018-11-09] MEDS ORDERED: ENOXAPARIN 40 MG/0.4 ML SYG SC SCH (09:00)
[2018-11-09] MEDS: METOPROLOL (XL) 25 MG TAB PO SCH ×2 (09:00→13:04)
[2018-11-09] MEDS: MEROPENEM 500MG/50 ML (PMX) 50 ML IVPB SCH ×2 (09:09→20:04)
[2018-11-09] MEDS: DICLOFENAC SODIUM 1% GEL 100 GM TUBE TP SCH ×4 (09:09→20:05)
[2018-11-09] MEDS ORDERED: ONDANSETRON 4 MG INJ IV PRN (11:30)
[2018-11-09] MEDS: DEXTROSE 5%-0.45% NACL 1,000 ML IV SCH (13:00)
[2018-11-09 13:08] VITALS: BP 124/59; PULSE 69; RESP 18
[2018-11-09 13:56] VITALS: BP 135/61; PULSE 81; RESP 20
[2018-11-09 20:00] VITALS: BP 126/59; PULSE 76; RESP 18
[2018-11-09] MEDS: INSULIN GLARGINE [LANTus] (100 UNITS/ML) SYG SC SCH (20:03)
[2018-11-09] MEDS: ATORVASTATIN 80 MG TAB PO SCH (20:04)
[2018-11-10] MEDS: ACCU-CHEK XX SCH ×5 (01:09→21:00)
[2018-11-10 01:55] VITALS: BP 125/61; PULSE 79; RESP 18
[2018-11-10] MEDS: DEXTROSE 5%-0.45% NACL 1,000 ML IV SCH (03:18)
[2018-11-10 07:44] VITALS: BP 141/63; PULSE 80; RESP 20
[2018-11-10] MEDS: INSULIN ASPART [NOVOLOG] 3 ML PEN SC SCH ×7 (08:00→20:53)
[2018-11-10] MEDS: MEROPENEM 500MG/50 ML (PMX) 50 ML IVPB SCH ×2 (08:48→21:01)
[2018-11-10] MEDS: AMLODIPINE 10 MG TAB PO SCH ×2 (08:49→09:00)
[2018-11-10] MEDS: HYDROCHLOROTHIAZIDE 25 MG TAB PO SCH ×2 (08:49→08:59)
[2018-11-10] MEDS: METOPROLOL (XL) 25 MG TAB PO SCH ×2 (08:49→09:00)
[2018-11-10] MEDS: DICLOFENAC SODIUM 1% GEL 100 GM TUBE TP SCH ×4 (08:50→20:58)
[2018-11-10] MEDS: HEPARIN 5,000 UNIT/1 ML VIAL SC SCH ×2 (08:56→20:54)
[2018-11-10 13:15] VITALS: BP 127/59; PULSE 76; RESP 20
[2018-11-10 20:00] VITALS: BP 133/63; PULSE 77; RESP 18
[2018-11-10] MEDS: INSULIN GLARGINE [LANTus] (100 UNITS/ML) SYG SC SCH (20:54)
[2018-11-10] MEDS: ATORVASTATIN 80 MG TAB PO SCH (21:01)
[2018-11-11 01:26] VITALS: BP 140/65; PULSE 78; RESP 20
[2018-11-11] MEDS: ACCU-CHEK XX SCH ×5 (02:00→20:36)
[2018-11-11 08:16] VITALS: BP 135/62; PULSE 71; RESP 18
[2018-11-11] MEDS: INSULIN ASPART [NOVOLOG] 3 ML PEN SC SCH ×7 (08:29→20:34)
[2018-11-11] MEDS: HEPARIN 5,000 UNIT/1 ML VIAL SC SCH ×2 (08:30→20:36)
[2018-11-11] MEDS: MEROPENEM 500MG/50 ML (PMX) 50 ML IVPB SCH ×2 (08:31→18:40)
[2018-11-11] MEDS: HYDROCHLOROTHIAZIDE 25 MG TAB PO SCH (08:32)
[2018-11-11] MEDS: DICLOFENAC SODIUM 1% GEL 100 GM TUBE TP SCH ×4 (08:32→20:36)
[2018-11-11] MEDS: METOPROLOL (XL) 25 MG TAB PO SCH (08:32)
[2018-11-11] MEDS: AMLODIPINE 10 MG TAB PO SCH (08:32)
[2018-11-11 14:13] VITALS: BP 127/60; PULSE 75; RESP 18
[2018-11-11] MEDS ORDERED: LIDOCAINE 1% (MPF) 5 ML VIAL INJ ONE (16:00)
[2018-11-11] MEDS ORDERED: LIDOCAINE 1% (MPF) 30 ML INJ INJ PRN (16:00)
[2018-11-11 19:50] VITALS: BP 128/74; PULSE 76; RESP 16
[2018-11-11] MEDS: ATORVASTATIN 80 MG TAB PO SCH (20:33)
[2018-11-11] MEDS: INSULIN GLARGINE [LANTus] (100 UNITS/ML) SYG SC SCH (20:36)
== END 2018-11-11 21:25 | disposition home health service (06) | DRG 872 ==
LOC: E/R 16:58 → 2NE 21:36 → SUATTDRO 11-04 09:13 → 2NE 11-04 17:52
PROVIDERS: ADMIT Internal Medicine; ATTEND Internal Medicine
PROC: 0S9F3ZZ Drainage of Right Ankle Joint, Percutaneous Approach (ICD-10-PCS; principal; 2018-11-08)
DX: A41.51 Sepsis due to Escherichia coli [E. coli] (principal); N39.0 Urinary tract infection, site not specified; S92.341A Displaced fracture of fourth metatarsal bone, right foot, initial encounter for closed fracture; I10 Essential (primary) hypertension; E11.9 Type 2 diabetes mellitus without complications; E78.5 Hyperlipidemia, unspecified; X58.XXXA Exposure to other specified factors, initial encounter; Z16.12 Extended spectrum beta lactamase (ESBL) resistance; S93.401A Sprain of unspecified ligament of right ankle, initial encounter
CPT/HCPCS: 73630; 80048; 80053; 80069; 81001; 82962; 83036; 83605; 83735; 84100; 84484; 85025; 85610; 85730; 87070; 87075; 87086; 93005; 93971; J0360; J1644; J1815; J2185; J2405; J2543; J3475; J7030; J7042; J7120; L4360-RT